=== PATIENT | female | born 2000 | race Hispanic/Latino ===

== ENCOUNTER 2022-02-17 15:51 | Emergency (ER) | payer MEDICAID ==
[2022-02-17 16:30] LABS: BASOPHILS % (AUTO) 0.5 % (0.0-5.0); EOSINOPHILS % (AUTO) 0.2 % (0.0-8.0); HEMATOCRIT 40.8 % (36-48); LYMPHOCYTES % (AUTO) 13.4 % (21.0-51.0); MEAN CORPUSCULAR HEMOGLOBIN 31.3 pg (27.0-33.0); MEAN CORPUSCULAR HGB CONC 34.3 g/dL (32.0-36.0); MEAN CORPUSCULAR VOLUME 91.3 fL (80-100); MONOCYTES % (AUTO) 7.1 % (3.0-13.0); NEUTROPHILS % (AUTO) 78.4 % (40.0-77.0); PLATELET COUNT (AUTO) 233 K/uL (130-400); RED BLOOD CELL COUNT(AUTO) 4.47 MIL/uL (4.00-5.50); RED CELL DISTRIBUTION WIDTH 13.1 % (11.0-15.5); WHITE BLOOD COUNT (AUTO) 12.3 K/uL (4.8-10.8)
[2022-02-17] MEDS ORDERED: LACTATED RINGERS 1000ML 1,000 ML IV ONE (16:30)
[2022-02-17 16:40] LABS: CREATININE 0.7 mg/dL (0.5-1.5); POTASSIUM 3.8 mmol/L (3.5-5.1)
[2022-02-17 17:03] LABS: ALBUMIN 3.8 g/dL (3.5-5.0); BILIRUBIN,TOTAL 0.3 mg/dL (0.2-1.0); TOTAL PROTEIN, SERUM 7.3 g/dL (6.0-8.3)
[2022-02-17 17:29] LABS: APPEARANCE,URINE Turbid (CLEAR); BILIRUBIN,URINE Negative (NEGATIVE); COLOR,URINE Yellow (YELLOW); GLUCOSE, URINE (UA) Negative (NEGATIVE); KETONES,URINE Trace mg/dL (NEGATIVE); LEUKOCYTE ESTERASE ,URINE Large (NEGATIVE); NITRATE,URINE Negative (NEGATIVE); OCCULT BLOOD,URINE Small (NEGATIVE); PH,URINE 6.5 (5.0-8.0); PROTEIN,URINE POS 2+ mg/dL (NEGATIVE); UROBILINOGEN,URINE 0.2 mg/dL (0.2-1.0)
[2022-02-17] MEDS ORDERED: AZITHROMYCIN 250 MG TABLET PO ONE (17:30)
[2022-02-17] MEDS ORDERED: LACTATED RINGERS 1000ML IV SCH (17:30)
[2022-02-17] MEDS ORDERED: CEFTRIAXONE 1G VIAL IVP ONE (17:30)
[2022-02-17 17:42] LABS: BACTERIA,URINE Moderate /HPF (None Seen); MUCUS,URINE Few LPF (None Seen); SQUAMOUS EPITHELIAL CELL,UR Few /HPF (0-2)
[2022-02-17] MEDS ORDERED: LACTATED RINGERS 1000ML 1,000 ML IV SCH (18:30)
[2022-02-17 19:34] VITALS: BP 136/79
[2022-02-17] MEDS ORDERED: DOXY100T2 PO (20:14)
[2022-02-17] MEDS ORDERED: METR375C2 PO (20:14)
[2022-02-17] MEDS ORDERED: PROMETHAZINE HCL 25 MG TABLET ONE (20:31)
== END 2022-02-17 20:37 | disposition home or self-care (01) ==
LOC: EDH 15:51
DX: N39.0 Urinary tract infection, site not specified (principal); R74.8 Abnormal levels of other serum enzymes; Z20.2 Contact with and (suspected) exposure to infections with a predominantly sexual mode of transmission
CPT/HCPCS: 36415; 80053; 81001; 82550 ×2; 84703; 85025; 87088; 87486; 87797; 96361; 96374; 99283; J0696; J7120; Q0169